=== PATIENT | male | born 1985 | race African-American/Black ===

== ENCOUNTER 2018-09-11 00:23 | Emergency (ER) | payer SELFPAY ==
[~2018-09-11] VITALS: Ht 175.3 cm; Wt 98.2 kg
[2018-09-11 00:26] VITALS: BP 155/88
[2018-09-11] MEDS ORDERED: HYDROcodone/APAP 5/325 TABLET ONE (00:44)
[2018-09-11] MEDS ORDERED: HYDROcodone/APAP 5/325 TABLET PO ONE (01:00)
[2018-09-11] MEDS ORDERED: LIDOCAINE-MPF 1%, 2ML ONE (01:43)
== END 2018-09-11 02:08 ==
LOC: ED 02:02
DX: K04.6 Periapical abscess with sinus (principal)
CPT/HCPCS: 41800; 99283